=== PATIENT | female | born 1985 | race Caucasian/White ===

== ENCOUNTER 2016-04-24 11:49 | Emergency (ER) | payer BC ==
[~2016-04-24] VITALS: Ht 182.9 cm; Wt 67.3 kg
[~2016-04-24 11:49] MED LIST: ASPIRIN 81M81 MG/TA2 PO; BACTRIM DS 8001 TAB PO; CARAFATE 1GM1 G PO; CARDIZEM120 MG PO; CEPHALEXIN500 M1 PO; DEPO-PROVER150 MG/M1 IM; DIGITEK0.25 MG PO; DISALCID750 MG; LOPRESSOR 550 MG/TAB PO; LORTAB 7.5/5001 TAB PO; NORCO 325 MG-51 TAB PO; OXY IR5 MG PO; OXYCONTIN 20MG20 MG PO; PENICILLIN V500 MG PO; PLAQUENIL 200M200 MG PO; PREDNISONE20 MG; VICODIN 5/5001 UDTAB PO; ZOFRAN ODT4 MG PO
[2016-04-24 11:52] VITALS: TEMP 98.7
[2016-04-24] MEDS ORDERED: BENLYSTA120 MG (11:55)
[2016-04-24 12:48] LABS: MEAN CELL VOLUME 90 fl (80.0-100.0); MEAN CORPUSCULAR HGB CONC 35 g/dl (33.0-37.0); RED BLOOD COUNT 2.65 M/mm3 (4.10-5.30); WHITE BLOOD COUNT 6.7 K/mm3 (4.8-10.8)
[2016-04-24 12:55] LABS: ADJUSTED CALCIUM 9.3 mg/dL (8.4-10.2); ALBUMIN 3.6 gm/dL (3.5-5.0); BILIRUBIN,TOTAL 4.1 mg/dL (0.0-1.0); C-REACTIVE PROTEIN 1.5 mg/dL (0.0-0.9); CREATININE, serum 0.93 mg/dL (0.52-1.25); MAGNESIUM 1.3 mg/dL (1.6-2.3); POTASSIUM 3.8 mmol/L (3.4-5.0); TOTAL PROTEIN 8.6 gm/dL (6.4-8.2)
[2016-04-24 13:03] LABS: INR 1.2 (0.8-3.0); PROTHROMBIN TIME 13.1 SECONDS (9.7-12.8)
[2016-04-24 13:05] LABS: PARTIAL THROMBOPLASTIN TIME 46.7 SECONDS (26.0-37.0)
[2016-04-24 13:07] LABS: HEMATOCRIT 23.8 % (37.0-47.0); HEMOGLOBIN 8.2 g/dl (12.5-16.0); MEAN CORPUSCULAR HEMOGLOBIN 31 pg (27.0-31.0)
[2016-04-24 13:09] LABS: PLATELET COUNT 4 K/mm3 (130-400)
[2016-04-24 13:16] LABS: BAND 9 % (0-10); METAMYELOCYTE 2 % (0-0); MYELOCYTE 8 % (0-0); NEUTROPHILS 59 % (42.0-75.2); PLATELET ESTIMATE DECREASED (NORMAL); TOTAL CELLS COUNTED 100
[2016-04-24 13:18] LABS: ANISOCYTOSIS 2+; OVALOCYTES 1+; POIKILOCYTOSIS 3+; SCHISTOCYTES 1+; SPHEROCYTE 2+
[2016-04-24 13:20] LABS: ADD PATHOLOGY DIFF REVIEW YES
[2016-04-24 13:22] LABS: ERYTHROCYTE SEDIMENTATION RATE > 140 mm/hr (0-20)
[2016-04-24 13:52] LABS: TROPONIN-I 0.478 ng/mL (0.000-0.034)
[2016-04-24 14:15] VITALS: BP 134/85; PULSE 108
[2016-04-25 09:04] LABS: PATHOLOGY DIFF REVIEW OK +
== END 2016-04-24 14:15 | disposition short-term general hospital (02) ==
LOC: COL.ER 11:49
PROVIDERS: Emergency Medicine
DX: M32.19 Other organ or system involvement in systemic lupus erythematosus (principal); G04.81 Other encephalitis and encephalomyelitis; D64.9 Anemia, unspecified; R00.0 Tachycardia, unspecified; D69.6 Thrombocytopenia, unspecified
CPT/HCPCS: J0692; J2930; J3370; J7030; J7050